=== PATIENT | male | born 1955 | race African-American/Black ===

== ENCOUNTER 2020-09-07 22:46 | Emergency (ER) | payer BC ==
[~2020-09-07] VITALS: Ht 185.4 cm; Wt 99.8 kg
[2020-09-07 23:34] LABS: ABSOLUTE NEUTROPHILS 6.2 thou/uL (1.4-8.2); BASOPHILS 0.7 % (0.0-2.0); EOSINOPHILS 4.4 % (0.0-3.0); HEMATOCRIT 43.5 % (42.0-52.0); HEMOGLOBIN 13.7 gm/dL (14.0-18.0); LYMPHOCYTES 20.7 % (24.0-44.0); MCH 24.8 pg (26.0-34.0); MCHC 31.5 g/dL (28.0-37.0); MCV 78.6 fL (80.0-100.0); MONOCYTES 9.8 % (1.0-8.0); PLATELET COUNT 235 thou/uL (150-400); POLYS 64.4 % (36.0-66.0); RBC 5.53 mil/uL (4.50-6.00); RDW 15.4 % (10.5-14.5); WBC 9.6 thou/uL (4.0-11.0)
[2020-09-07 23:44] LABS: ANION GAP 11 mmol/L (7-16); BUN 16 mg/dL (7-18); CALCIUM 9.9 mg/dL (8.5-10.1); CHLORIDE 103 mmol/L (98-107); CO2 27 mmol/L (21-32); CREATININE 1.3 mg/dL (0.7-1.3); GLUCOSE 99 mg/dL (74-106); POTASSIUM 3.6 mmol/L (3.5-5.1); SODIUM 141 mmol/L (136-145)
[2020-09-07 23:54] LABS: ALBUMIN 3.9 g/dL (3.4-5.0); SGOT 16 U/L (15-37); SGPT 23 U/L (16-63); TOTAL BILIRUBIN 0.2 mg/dL (0.2-1.0); TOTAL PROTEIN 7.2 g/dL (6.4-8.2); TROPONIN-I <0.06 ng/mL (<0.06)
[2020-09-08] MEDS ORDERED: QUINAPRIL-HCTZ1 EAC1 PO (00:49)
[2020-09-08] MEDS ORDERED: AMLODIPINE BESY10 MG PO (00:50)
[2020-09-08 01:59] VITALS: BP 127/73
--- NOTE | 2020-09-09 07:14 | EKG ---
[address] [place] [address] ELECTROCARDIOGRAM REPORT Name: HENDERSONANSHU MONAEJOSEPHINE aCrcamo [facility] [id number] Admission: 09/07/20 Attend Phys: Discharge: 09/08/20 Date of : 59 Report #: [id number] [facility] ED Test Date: 2020-09-07 Test Time: 23:13:00 Pat Name: SURESH HENDERSON Department: Room: Gender: Route Aide: yared king : 1955 Requested By: Zaid Vasquez Order Number: [id number] MD: Jeff March Measurements Intervals [place] Rate: 77 P: 49 NM: 185 QRS: 32 QRSD: 77 T: 42 QT: 355 QTc: 402 Interpretive Statements Sinus rhythm Normal tracing Compared to ECG 11/06/1999 09:25:31 No significant changes Electronically Signed On 09-09-2020 7:14:20 GEOPHYSICS PROFESSOR by Jeff March [email or web address] <ELECTRONICALLY SIGNED> By: Jeff March MD, [facility] 09/09/20 0714 2313 2313 Jeff March MD, FACC /EPI
== END 2020-09-08 01:52 | disposition home or self-care (01) ==
LOC: ER 22:46
PROVIDERS: Emergency Medicine
DX: R00.2 Palpitations (principal); R00.0 Tachycardia, unspecified; I10 Essential (primary) hypertension; Z79.899 Other long term (current) drug therapy

== ENCOUNTER 2020-09-11 04:15 | Emergency (ER) | payer BC ==
[~2020-09-11] VITALS: Ht 185.4 cm; Wt 103.7 kg
[~2020-09-11 04:15] MED LIST: AMLODIPINE BESY10 MG PO; QUINAPRIL-HCTZ1 EAC1 PO
[2020-09-11 05:16] LABS: ABSOLUTE NEUTROPHILS 6.3 thou/uL (1.4-8.2); BASOPHILS 0.6 % (0.0-2.0); EOSINOPHILS 5.4 % (0.0-3.0); HEMATOCRIT 42.2 % (42.0-52.0); HEMOGLOBIN 13.9 gm/dL (14.0-18.0); LYMPHOCYTES 18.7 % (24.0-44.0); MCH 25.6 pg (26.0-34.0); MCHC 32.9 g/dL (28.0-37.0); MCV 77.7 fL (80.0-100.0); MONOCYTES 9.4 % (1.0-8.0); PLATELET COUNT 229 thou/uL (150-400); POLYS 65.9 % (36.0-66.0); RBC 5.43 mil/uL (4.50-6.00); RDW 15.4 % (10.5-14.5); WBC 9.6 thou/uL (4.0-11.0)
[2020-09-11 05:28] LABS: ANION GAP 11 mmol/L (7-16); BUN 14 mg/dL (7-18); CALCIUM 9.8 mg/dL (8.5-10.1); CHLORIDE 102 mmol/L (98-107); CO2 26 mmol/L (21-32); CREATININE 1.3 mg/dL (0.7-1.3); GLUCOSE 119 mg/dL (74-106); POTASSIUM 3.5 mmol/L (3.5-5.1); SODIUM 139 mmol/L (136-145)
[2020-09-11 05:38] LABS: ALBUMIN 3.9 g/dL (3.4-5.0); DIRECT BILIRUBIN < 0.1 mg/dL (<0.1-0.2); SGOT 15 U/L (15-37); SGPT 26 U/L (30-65); TOTAL BILIRUBIN 0.4 mg/dL (0.2-1.0); TOTAL PROTEIN 7.3 g/dL (6.4-8.2); TROPONIN-I <0.06 ng/mL (<0.06)
[2020-09-11] MEDS ORDERED: XANAX 0.5 MG0.5 M1 PO (06:20)
[2020-09-11 06:44] VITALS: BP 142/79
--- NOTE | 2020-09-11 07:22 | EKG ---
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
== END 2020-09-11 06:44 | disposition home or self-care (01) ==
LOC: ER 04:15
PROVIDERS: Emergency Medicine
DX: R07.89 Other chest pain (principal); I10 Essential (primary) hypertension; R00.2 Palpitations; G47.9 Sleep disorder, unspecified; Z79.899 Other long term (current) drug therapy

== ENCOUNTER → 2020-09-18 | Outpatient (CLI) | payer BC ==
[~2020-09-18] MED LIST changes: +XANAX 0.5 MG0.5 M1 PO
== END ==
LOC: SJCVCIMAG 09-16 11:14
PROVIDERS: ATTEND Internal Medicine
DX: I08.8 Other rheumatic multiple valve diseases (principal); R00.0 Tachycardia, unspecified; Z79.899 Other long term (current) drug therapy

== ENCOUNTER 2020-10-04 20:33 | Emergency (ER) | payer BC ==
[~2020-10-04] VITALS: Ht 185.4 cm; Wt 95.3 kg
[2020-10-04] MEDS ORDERED: TRAMADOL 50 MG50 MG PO (21:03)
[2020-10-04] MEDS ORDERED: METOPROLOL SUCC25 M1 PO (21:04)
[2020-10-04 21:09] LABS: URINE BILIRUBIN NEGATIVE (Negative); URINE BLOOD NEGATIVE (Negative); URINE CLARITY CLEAR; URINE COLOR YELLOW; URINE GLUCOSE-RANDOM* NEGATIVE (Negative); URINE KETONES NEGATIVE (Negative); URINE LEUKOCYTES-REFLEX NEGATIVE (Negative); URINE NITRITE-REFLEX NEGATIVE (Negative); URINE PROTEIN (DIPSTICK) NEGATIVE (Negative); URINE UROBILINOGEN 0.2 E.U./dl (0.2-1.0)
[2020-10-04 21:32] LABS: ABSOLUTE NEUTROPHILS 6.3 thou/uL (1.4-8.2); BASOPHILS 0.8 % (0.0-2.0); EOSINOPHILS 6.2 % (0.0-3.0); HEMATOCRIT 41.8 % (42.0-52.0); HEMOGLOBIN 13.4 gm/dL (14.0-18.0); LYMPHOCYTES 21.3 % (24.0-44.0); MCH 24.9 pg (26.0-34.0); MCV 77.6 fL (80.0-100.0); MONOCYTES 9.8 % (1.0-8.0); PLATELET COUNT 230 thou/uL (150-400); POLYS 61.9 % (36.0-66.0); RBC 5.39 mil/uL (4.50-6.00); RDW 15.2 % (10.5-14.5); WBC 10.2 thou/uL (4.0-11.0)
[2020-10-04 21:44] LABS: ANION GAP 4 mmol/L (7-16); BUN 16 mg/dL (7-18); CALCIUM 9.8 mg/dL (8.5-10.1); CHLORIDE 105 mmol/L (98-107); CO2 31 mmol/L (21-32); CREATININE 1.4 mg/dL (0.7-1.3); GLUCOSE 100 mg/dL (74-106); POTASSIUM 3.8 mmol/L (3.5-5.1); SODIUM 140 mmol/L (136-145)
[2020-10-04 21:58] LABS: ALBUMIN 3.8 g/dL (3.4-5.0); DIRECT BILIRUBIN < 0.1 mg/dL (<0.1-0.2); LIPASE 113 U/L (73-393); SGOT 17 U/L (15-37); SGPT 27 U/L (30-65); TOTAL BILIRUBIN 0.3 mg/dL (0.2-1.0); TOTAL PROTEIN 7.2 g/dL (6.4-8.2); TROPONIN-I <0.06 ng/mL (<0.06)
[2020-10-04 22:16] LABS: LARGE PLATELETS OCCASIONAL; SCHISTOCYTES RARE
[2020-10-04] MEDS ORDERED: OMEPRAZOLE 20 M20 M1 PO (22:20)
[2020-10-04] MEDS ORDERED: ONDANSETRON HCL4 M2 PO (23:08)
[2020-10-04 23:29] VITALS: BP 149/75
--- NOTE | 2020-10-07 07:38 | EKG ---
[address] [address] ELECTROCARDIOGRAM REPORT Name: ANSHU HENDERSONJOSEPHINE Carcamo [facility] [id number] Admission: 10/04/20 Attend Phys: Discharge: 10/04/20 Date of : 59 Report #: [id number] [facility] ED Test Date: 2020-10-04 Test Time: 20:58:12 Pat Name: SURESH HENDERSON Department: Room: Gender: Director Mobile: [email or web address] : 1955 Requested By: Arcenio Pleitez Order Number: [id number] MD: Jeff March Measurements Intervals [place] Rate: 64 P: 64 IN: 188 QRS: 36 QRSD: 81 T: 29 QT: 373 QTc: 385 Interpretive Statements Sinus rhythm No significant abnormality Compared to ECG 09/11/2020 04:23:00 No significant changes Electronically Signed On 10-07-2020 7:38:20 MEDIATOR by Jeff March [email or web address] <ELECTRONICALLY SIGNED> By: Jeff March MD, [facility] 10/07/20 0738 57 59 Jeff March MD, FACC /EPI
== END 2020-10-04 23:26 | disposition home or self-care (01) ==
LOC: ER 20:33
PROVIDERS: Nurse Practitioner
DX: K21.9 Gastro-esophageal reflux disease without esophagitis (principal); I10 Essential (primary) hypertension; Z79.899 Other long term (current) drug therapy

== ENCOUNTER 2021-01-02 05:55 | Emergency (ER) | payer BC ==
[~2021-01-02] VITALS: Ht 185.4 cm; Wt 97.5 kg
[~2021-01-02 05:55] MED LIST changes: +METOPROLOL SUCC25 M1 PO; +OMEPRAZOLE 20 M20 M1 PO; +ONDANSETRON HCL4 M2 PO; +TRAMADOL 50 MG50 MG PO
[2021-01-02] MEDS ORDERED: ESOMEPRAZOLE MA40 MG PO (06:06)
[2021-01-02 06:48] LABS: HEMOGLOBIN 13.2 gm/dL (14.0-18.0)
[2021-01-02 06:51] LABS: ABSOLUTE NEUTROPHILS 7.5 thou/uL (1.4-8.2); BASOPHILS 0.6 % (0.0-2.0); EOSINOPHILS 5.8 % (0.0-3.0); HEMATOCRIT 40.9 % (42.0-52.0); LYMPHOCYTES 20.6 % (24.0-44.0); MCH 24.7 pg (26.0-34.0); MCHC 32.4 g/dL (28.0-37.0); MCV 76.4 fL (80.0-100.0); MONOCYTES 8.9 % (1.0-8.0); PLATELET COUNT 238 thou/uL (150-400); POLYS 64.1 % (36.0-66.0); RBC 5.36 mil/uL (4.50-6.00); RDW 15.3 % (10.5-14.5); WBC 11.7 thou/uL (4.0-11.0)
--- NOTE | 2021-01-02 07:10 | EKG ---
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
[2021-01-02 07:28] LABS: ANION GAP 9 mmol/L (7-16); BUN 17 mg/dL (7-18); CALCIUM 9.6 mg/dL (8.5-10.1); CHLORIDE 106 mmol/L (98-107); CO2 27 mmol/L (21-32); CREATININE 1.3 mg/dL (0.7-1.3); GLUCOSE 101 mg/dL (74-106); POTASSIUM 3.9 mmol/L (3.5-5.1); SODIUM 142 mmol/L (136-145)
[2021-01-02 07:37] LABS: ALBUMIN 3.6 g/dL (3.4-5.0); SGOT 15 U/L (15-37); SGPT 26 U/L (16-63); TOTAL BILIRUBIN 0.4 mg/dL (0.2-1.0); TOTAL PROTEIN 7.4 g/dL (6.4-8.2); TROPONIN-I <0.06 ng/mL (<0.06)
[2021-01-02] MEDS ORDERED: FLEXERIL PO (07:50)
[2021-01-02 07:57] VITALS: BP 122/76
== END 2021-01-02 08:05 | disposition home or self-care (01) ==
LOC: ER 05:55
PROVIDERS: Emergency Medicine
DX: M79.10 Myalgia, unspecified site (principal); I10 Essential (primary) hypertension; G89.29 Other chronic pain; Z86.16 Personal history of COVID-19

== ENCOUNTER 2021-02-01 20:46 | Emergency (ER) | payer BC ==
[~2021-02-01] VITALS: Ht 185.4 cm; Wt 97.5 kg
[~2021-02-01 20:46] MED LIST changes: +ESOMEPRAZOLE MA40 MG PO; +FLEXERIL PO
[2021-02-01 20:50] VITALS: BP 147/80
[2021-02-01] MEDS ORDERED: CELEBREX 200 M200 MG PO (20:55)
[2021-02-01 20:57] LABS: URINE BILIRUBIN NEGATIVE (Negative); URINE BLOOD 2+ (Negative); URINE CLARITY CLEAR; URINE COLOR YELLOW; URINE GLUCOSE-RANDOM* NEGATIVE (Negative); URINE KETONES NEGATIVE (Negative); URINE LEUKOCYTES-REFLEX TRACE (Negative); URINE NITRITE-REFLEX NEGATIVE (Negative); URINE PROTEIN (DIPSTICK) NEGATIVE (Negative); URINE UROBILINOGEN 0.2 E.U./dl (0.2-1.0)
[2021-02-01 21:04] LABS: CASTS None Seen /LPF (None Seen); SQUAMOUS None Seen /LPF (0-3)
[2021-02-01 21:05] LABS: BACTERIA-REFLEX None Seen /HPF (None Seen); CRYSTALS None Seen /LPF (None Seen); URINE WBC-REFLEX 0-5 Rare /HPF (0-5)
== END 2021-02-01 21:37 | disposition home or self-care (01) ==
LOC: ER 20:46
PROVIDERS: Nurse Practitioner
DX: R31.29 Other microscopic hematuria (principal); I10 Essential (primary) hypertension; Z87.891 Personal history of nicotine dependence; Z79.899 Other long term (current) drug therapy

== ENCOUNTER → 2021-02-13 | Outpatient (CLI) | payer BC ==
[~2021-02-13] MED LIST changes: +CELEBREX 200 M200 MG PO
== END ==
LOC: CAT 09:26
PROVIDERS: ATTEND Family Medicine
DX: R91.8 Other nonspecific abnormal finding of lung field (principal)